=== PATIENT | male | born 1985 | race American Indian/Alaskan Native ===

== ENCOUNTER 2021-10-24 23:21 | Emergency (ER) | payer SELFPAY ==
--- NOTE | 2021-10-24 23:28 | Emergency Department Report ---
HPI - General Time Seen by Provider: 10/24/21 23:24 - HPI HPI: Room 2 The patient is a 35-year-old male present with a chief complaint of cardiac arrest. Per EMS the patient was observed walking to the bathroom this evening at 21: 30. A family member at the home went to check on the patient at approximately 22:30 and found the patient unresponsive. EMS was called and arrived on scene at 2238 to find the patient in asystole. Patient was intubated via ET tube and ACLS protocols were initiated. EMS states they administered 2 mg of Narcan and epi x3 prior to arrival without change in rhythm. Upon arrival to the ED the patient remained in asystole ACLS protocols were continued with there is no return of spontaneous circulation ED Past Medical Hx - Past Medical History Previous Medical History?: No - Surgical History Additional Surgical History: Skin Graft as baby, gall stones - Family History Family history: no significant - Social History Smoking Status: Never Smoker Substance Use Type: None ED Review of Systems ROS: Stated complaint: CARDIAC ARREST Other details as noted in HPI Comment: Unobtainable due to pts medical conditions Physical Exam - Physical Exam Physical Exam: GENERAL: The patient is well-developed well-nourished male lying on stretcher receiving chest compressions via EMS and being bagged via ET tube. [] HEENT: Normocephalic. Atraumatic. NECK: Trachea midline CHEST/LUNGS: No spontaneous respirations. Breath sounds equal bilaterally with bagging HEART/CARDIOVASCULAR: No heart sounds. Asystole on the monitor ABDOMEN: Abdomen is soft. There is no abdominal distention. SKIN: There is no rash. There is no edema. There is no diaphoresis. NEURO: GCS 3 T MUSCULOSKELETAL: There is no evidence of acute injury. ED Medical Decision Making - Differential Diagnosis Cardiac arrest Critical care attestation.: If time is entered above; I have spent that time in minutes in the direct care of this critically ill patient, excluding procedure time. ED Disposition Clinical Impression: Cardiac arrest Disposition: 20 Is pt being admited?: No Does the pt Need Aspirin: No Condition: Poor Time of Disposition: 23:24 (Patient )
== END 2021-10-25 05:37 ==
LOC: ED 23:21
DX: I46.9 Cardiac arrest, cause unspecified (principal)
CPT/HCPCS: 99285